=== PATIENT | male | born 1980 | race Caucasian/White ===

== ENCOUNTER 2020-11-02 20:51 | Emergency (ER) | payer OTHER, SELFPAY ==
--- NOTE | ~2020-11-02 | XR_ITS ---
EXAMINATION: XR HAND, RIGHT CLINICAL INFORMATION: Question of retained fissural. COMPARISON: None TECHNIQUE: PA, lateral, and oblique views of the right hand. FINDINGS: The distal end of a fishhook is present within the soft tissues on the medial dorsal surface of the fourth finger just proximal to the PIP joint. The bones and soft tissues are otherwise normal. No fracture. Alignment is anatomic. Joint spaces are maintained. No erosions or soft tissue calcifications. XR/XR hand RT min 3V IMPRESSION: Retained fish hook fragment as described above
[2020-11-02 20:54] VITALS: BP 132/87; PULSE 92; RESP 18; TEMP 37; O2SAT 96; BMI 25.7
--- NOTE | 2020-11-02 21:24 | ED.EXTPRO ---
HPI - Extremity Problem General Chief complaint: Extremity Injury, Upper Stated complaint: fish hook in finger Source: patient Mode of arrival: ambulatory Limitations: no limitations History of Present Illness HPI Narrative: 40-year-old male with no significant past medical history presents a with a fishhook to the right dorsal 4th finger. He did present to urgent care and they were unable to remove the hook. Patient was prescribed Keflex and Tdap was updated at that time. MD Complaint: extremity pain Onset (ago): hour(s) (Several hours prior to arrival) Pain Consistency: constant Location: right and upper extremity Quality: aching Radiation: proximal Relieving factors: nothing Exacerbating factors: palpation Associated symptoms: denies other symptoms Related Data Allergies Allergy/AdvReac Type Severity Reaction Status Date / Time No Known Allergies Allergy Verified 11/02/20 21:00 Review of Systems Review of Systems: Constitutional: No Fever, No Chills ENT/Mouth: No Ear Pain, No Hoarseness, No sore throat Eyes: No Eye Pain, No Swelling, No Redness, No Foreign Body Cardiovascular: No Chest Pain, No SOB Respiratory: No Cough, No Dyspnea Gastrointestinal: No Nausea, No Vomiting, No Diarrhea, No abdominal Pain Genitourinary: No Dysuria, No Hematuria Musculoskeletal: positive right ring finger pain and foreign body, No Myalgias, No Joint Swelling Skin: Positive surgical laceration right ring finger, No rash Neuro: No Weakness, No Numbness, No Paresthesias, No Loss of Consciousness, No Dizziness, No Headache Psych: No Anxiety/Panic, No Depression Heme/Lymph: no easy bruising, no Lymphadenopathy Endocrine: No Polyuria, No Polydipsia Yes all other systems are reviewed and are negative [facility] Past Medical History Attestation statement: The following information was validated with the patient. Source: old records reviewed Medical History No acute medical problems Shoulder separation Surgical History No history of previous surgery Social History Social History Advance Directives: No Advance Directives Information Provided: No Physical Exam Vital Signs: Vital Signs: Last Vital Signs Temp 98.6 F 11/02/20 20:54 Pulse 92 11/02/20 20:54 Resp 18 11/02/20 20:54 BP 132/87 11/02/20 20:54 Pulse Ox 96 11/02/20 20:54 Body Mass Index 25.7 Appearance: Alert. Oriented X3. No acute distress. Eyes: Pupils equal, round and reactive to light. ENT: Pharynx normal. Neck: Normal inspection. Neck supple. CVS: Normal heart rate and rhythm. Pulses normal. Respiratory: No respiratory distress. Breath sounds normal. Abdomen: Soft and nontender. Skin: Skin warm and dry. Normal skin color. Normal skin turgor. Extremities: Positive tenderness and swelling to the right ring finger, full range of motion, [address] from prior extraction attempt Neuro: No motor deficit. No sensory deficit. Course Course Course Narrative: 40-year-old male presents with fishhook in his right 4th finger. Plan is to remove. X-rays positive for partial piece of fishhook with Jeannine embedded into his finger, shaft of the hook was cut prior to his arrival. Prepped and draped in sterile fashion. Incision was enlarged with an 11 blade, and were at bedside to assist with fishhook extraction. Patient tolerated procedure well. Two sutures placed. Patient discharged home with prior antibiotics and plan to follow up for suture removal in 10 days. Procedures Foreign Body Removal Time Out Performed: yes Site: right and hand Description of foreign body: fish hook Sedation/Analgesia: other (Lidocaine 5 mL) Technique: removal with forceps, incision made to facilitate removal and irrigation Confirmed by:: direct visualization and radiograph Complications: none Neurovascular: normal distal pulse, normal capillary fill, distal light touch sensation intact and no signs of compartment syndrome MDM - Extremity (Nontraumatic) MDM Narrative Medical decision making narrative: Foreign body removal Medical Records Attestation: I reviewed the patient's medical records. Imaging Data Right hand x-ray: Attestation: I personally reviewed and interpreted this imaging study as follows: Radiologist's impression: EXAMINATION: XR HAND, RIGHT CLINICAL INFORMATION: Question of retained fissural. COMPARISON: None TECHNIQUE: PA, lateral, and oblique views of the right hand. FINDINGS: The distal end of a fishhook is present within the soft tissues on the medial dorsal surface of the fourth finger just proximal to the PIP joint. The bones and soft tissues are otherwise normal. No fracture. Alignment is anatomic. Joint spaces are maintained. No erosions or soft tissue calcifications. XR/XR hand RT min 3V IMPRESSION: Retained fish hook fragment as described above Discharge Plan Discharge Clinical Impression: [employer] injury to finger, Foreign body (FB) in soft tissue Patient Disposition: Home, Self-Care Instructions: Soft Tissue Foreign Body (ED) Additional Instructions: We removed a fishhook from your right index finger. Please take the antibiotics that were prescribed to by urgent care Return in 10 days to have sutures removed. Thank you for choosing this emergency department for evaluation. Please follow-up with primary care physician as needed. Return to the emergency department for any new, concerning, or worsening symptoms. Stand Alone Forms: Work/School Release Interventions: ED Discharge Assessment Last Done: 11/02/20 22:43 Discharge Date/Time: 11/02/20 22:44
[2020-11-02] MEDS: Lidocaine HCl 2 % MPF 5 ML VIAL 10 ML SUBCUT (22:27)
== END 2020-11-02 22:44 | disposition home or self-care (01) ==
PROVIDERS: Emergency Provider Internal Medicine; PCP Internal Medicine
DX: M60.241 Foreign body granuloma of soft tissue, not elsewhere classified, right hand (principal); M79.641 Pain in right hand
CPT/HCPCS: 20520; 73130; 99283